=== PATIENT | female | born 1945 | race Caucasian/White ===

== ENCOUNTER 2018-11-01 15:18 | Observation (INO) ==
[2018-11-01 16:22] LABS: BASO# 0.04 X1000 (0.0-0.2); BASO% 0.4 % (0.0-0.8); EOS# 0.05 X1000 (0.0-0.7); EOS% 0.5 % (0.0-10.0); HEMATOCRIT 44.3 % (37.0-47.0); HEMOGLOBIN 13.9 g/dL (12.0-16.0); IMM GRAN# 0.02 X1000 (0.0-0.04); IMM GRAN% 0.2 % (0.0-0.5); LYMPH# 1.12 X1000 (1.2-3.4); LYMPH% 10.4 % (20.5-51.1); MCH 30.1 PG (27-31); MCHC 31.4 g/dL (33-37); MCV 95.9 FL (81-99); MONO# 0.64 X1000 (0.11-0.59); MPV 12.2 FL (7.4-10.4); NEUT# 8.85 X1000 (1.4-6.5); NEUT% 82.5 % (42.2-75.2); PLT 184 X1000 (130-400); RBC 4.62 XMIL (4.2-5.4); WBC 10.72 X1000 (4.8-10.8)
[2018-11-01 16:46] LABS: AGAP 14; ALB/GLOB RATIO 1.8; ALBUMIN 4.1 g/dL (3.5-5.0); ALKALINE PHOSPHATASE 91 U/L (32-104); BUN 16 mg/dL (8-22); CALCIUM 9.7 mg/dL (8.8-10.2); CHLORIDE 102 mmol/L (98-107); COSMO 290; CREATININE 0.6 mg/dL (0.5-0.9); ESTIMATED GFR > 60; GLUCOSE 136 mg/dL (70-104); GOT 23 U/L (10-30); GPT 12 U/L (10-36); POTASSIUM 4.9 mmol/L (3.5-5.1); SODIUM 144 mmol/L (136-145); TCO2 28 mmol/L (25-35); TOTAL BILIRUBIN 0.73 mg/dL (0.20-1.00); TOTAL PROTEIN 6.4 g/dL (6.3-8.3)
[2018-11-01] MEDS ORDERED: SODIUM CHLORIDE 0.9% INJ PRN (18:24)
[2018-11-01] MEDS ORDERED: LOVENOX SUBQ SCH (18:24)
[2018-11-01] MEDS ORDERED: PHENERGAN IV PRN (18:24)
[2018-11-01] MEDS ORDERED: TYLENOL PO PRN (18:24)
--- NOTE | 2018-11-01 19:08 | Diag Imaging Result Doc PS360 ---
EXAM: CT ABDOMEN/PELVIS W/WO CONTRAS INDICATION: ABD PN,N/V TECHNIQUE: This exam was performed using automated exposure control, adjustment of mA or kV according to patient size, and/or use of iterative reconstruction technique. COMPARISON: None. FINDINGS: There has been a prior cholecystectomy. The liver, spleen, pancreas, and adrenal glands are essentially unremarkable. There is bilateral nephrolithiasis and there is an 8.5 mm obstructing stone at the left UPJ with associated moderate left hydronephrosis and a delayed nephrogram. There is a simple appearing right renal cyst. There is no hydronephrosis on the right. The urinary bladder is unremarkable. The pelvis is partially obscured by beam hardening artifact related to right hip arthroplasty. There are surgical changes associated with the stomach. There is no evidence of bowel obstruction or focal bowel wall thickening. The remainder of the GI tract is essentially unremarkable. There has been a prior hysterectomy. There has been multilevel lumbar fusion. There are degenerative changes throughout the spine. IMPRESSION: 1.Bilateral nephrolithiasis with an 8.5 mm obstructing stone at the left UPJ with associated moderate left hydronephrosis. 2.Other incidental/nonacute findings detailed above. Electronically signed by Alfred Lee 11/01/2018 7:06 PM
[2018-11-01] MEDS: DILAUDID IV PRN ×2 (19:11→22:52)
[2018-11-01] MEDS: FLAGYL 500 MG/NS 500 MG/100 ML IVPB IV SCH (19:12)
[2018-11-01] MEDS: NS 1,000 ML IV SCH (19:12)
[2018-11-01 19:33] LABS: BASO% 0.7 % (0.0-0.8); EOS# 0.03 X1000 (0.0-0.7); EOS% 0.2 % (0.0-10.0); HEMATOCRIT 47.7 % (37.0-47.0); HEMOGLOBIN 14.9 g/dL (12.0-16.0); IMM GRAN# 0.03 X1000 (0.0-0.04); IMM GRAN% 0.2 % (0.0-0.5); LYMPH# 1.11 X1000 (1.2-3.4); LYMPH% 8.3 % (20.5-51.1); MCH 30.4 PG (27-31); MCHC 31.2 g/dL (33-37); MCV 97.3 FL (81-99); MONO# 0.76 X1000 (0.11-0.59); MONO% 5.7 % (1.7-9.3); MPV 12.2 FL (7.4-10.4); NEUT# 11.36 X1000 (1.4-6.5); NEUT% 84.9 % (42.2-75.2); PLT 181 X1000 (130-400); RDW 13.3 % (11.5-14.5); WBC 13.39 X1000 (4.8-10.8)
[2018-11-01 20:26] LABS: AGAP 13; BUN 15 mg/dL (8-22); CALCIUM 8.8 mg/dL (8.8-10.2); CHLORIDE 98 mmol/L (98-107); COSMO 284; CREATININE 0.6 mg/dL (0.5-0.9); ESTIMATED GFR > 60; GLUCOSE 196 mg/dL (70-104); POTASSIUM 4.6 mmol/L (3.5-5.1); SODIUM 139 mmol/L (136-145); TCO2 28 mmol/L (25-35)
[2018-11-01] MEDS ORDERED: ZANTAC PO SCH (21:00)
[2018-11-01] MEDS: LYRICA PO SCH (22:41)
[2018-11-01] MEDS: XANAX PO SCH (22:42)
[2018-11-01] MEDS: MIRAPEX PO SCH (22:42)
[2018-11-02] MEDS: SYMBICORT 80/4.5 MICROGM INHALER INH SCH ×2 (00:29→09:30)
[2018-11-02] MEDS: DILAUDID IV PRN ×3 (02:06→10:47)
[2018-11-02] MEDS: FLAGYL 500 MG/NS 500 MG/100 ML IVPB IV SCH (04:20)
[2018-11-02] MEDS ORDERED: SYNTHROID PO SCH (07:00)
[2018-11-02] MEDS ORDERED: DIPRIVAN 1% ONE (07:19)
[2018-11-02] MEDS ORDERED: ZEMURON ONE (07:20)
[2018-11-02] MEDS ORDERED: DECADRON ONE (07:20)
[2018-11-02] MEDS ORDERED: QUELICIN (DOSE) ONE (07:20)
[2018-11-02] MEDS ORDERED: XYLOCAINE-MPF 2% ONE (07:20)
--- NOTE | 2018-11-02 08:55 | PROGRESS NOTE ---
DATE: 11/02/2018 SUBJECTIVE: Ms. Payne rested comfortably throughout the night. A CT scan demonstrated an 8.5 mm stone at the left UPJ junction with moderate hydronephrosis. Pain has been well controlled on IV Dilaudid. She is voiding freely. Dr. Luna saw her in consultation, and will proceed with placement of a JJ stent today with plans to proceed with extracorporeal lithotripsy next week as an outpatient. OBJECTIVE: Vital signs: Temperature 98.3 degrees, pulse 61, respirations 16, blood pressure 108/52. CV: Regular rate and rhythm. Lungs: Clear. Abdomen: Soft, nontender, with active bowel sounds. LABORATORY DATA: A CBC demonstrated a white count of 13.3, hemoglobin 14.9, hematocrit 47.7, platelet count a 181,000. Electrolytes demonstrate the following: Sodium 139, potassium 4.6, chloride 98, BUN 15, creatinine 0.6, and glucose 196. ASSESSMENT AND PLAN: 1. Obstructing distal left ureteral stone with moderate hydronephrosis. We will continue fluid resuscitation, and she will proceed with placement of a J and J stent today with extracorporal lithotripsy as an outpatient next week. I will obtain a urinalysis and a urine culture, and I have switched her to oral Levaquin. I hope to transition her to oral pain medicines today. 2. Blood pressure. Her blood pressure was a little bit low. We we will give her additional fluids, and monitor her blood pressure closely. cc: Josep West MD
[2018-11-02] MEDS ORDERED: KEFZOL 2 GM/D5W 2 GM/50 ML IVPB ONE (08:57)
[2018-11-02] MEDS ORDERED: SINGULAIR PO SCH (09:00)
[2018-11-02] MEDS ORDERED: LEVAQUIN PO SCH (09:00)
[2018-11-02] MEDS ORDERED: NORCO-7.5 PO PRN (10:21)
--- NOTE | 2018-11-02 10:55 | CONSULTATION ---
DATE OF CONSULTATION: 11/02/2018 CONSULTING PHYSICIAN: Josep West MD REASON FOR CONSULTATION: Consultation for left obstructing ureteropelvic junction stone, left flank pain, nausea, hydronephrosis. HISTORY OF PRESENT ILLNESS: A 73-year-old female without previous history of urolithiasis, who developed vague abdominal pain 2 days prior to presentation. One day prior to presentation, her pain had worsened and started radiating to the left flank. The pain was sharp, intermittent. Nothing made it better, nothing made it worse. It radiated toward the upper back. She had associated nausea, but no vomiting. She denied associated gross hematuria, fevers, or chills. She presented to Dr. West' office and was evaluated. CT scan was done, which revealed bilateral renal stones with 9 mm left obstructing ureteropelvic junction stone with hydronephrosis. She was admitted for pain control and nausea. She is requiring IV Dilaudid. PAST MEDICAL HISTORY: GERD, allergic rhinitis, hypothyroidism, anxiety. PAST SURGICAL HISTORY: Bilateral total knee arthroplasty, right hip arthroplasty, bilateral shoulder arthroplasties, back surgery, cholecystectomy, hysterectomy, cochlear implant placement. ALLERGIES: Prednisone. HOME MEDICATIONS: Symbicort, Zantac, Mirapex, Lyrica, Xanax, Synthroid. SOCIAL HISTORY: Denies tobacco, alcohol, and illicit drug use. FAMILY HISTORY: Negative for urolithiasis or malignancies. REVIEW OF SYSTEMS: Reviewed and 12 systems negative except as per HPI. PHYSICAL EXAMINATION: Vital Signs: T 98, P 62, BP 99/45. General: No acute distress. Pleasant female. HEENT: Normocephalic, atraumatic. Cardiovascular: Regular rate and rhythm. Pulmonary: Bilateral breath sounds. Abdomen: Protuberant. Nontender to palpation. Back: Mild left CVA tenderness. Genitourinary: Bladder is nontender to palpation. Dermatologic: No obvious skin rashes. Neurologic: Neurologic alert and oriented x3. Lymphatic: No groin lymphadenopathy. Psychiatric: Appropriate mood and affect. PERTINENT LABORATORY DATA: White cell count 13,000, hematocrit 48, platelet count 181,000. Creatinine is 0.6. PERTINENT IMAGES: CT abdomen and pelvis per HPI. By my review, she has an 8 mm left renal stone as well as a 5 mm left renal stone, and aforementioned 9 mm left ureteropelvic junction stone. She has a 6 to 7 mm right renal stone. ASSESSMENT AND PLAN: A 73-year-old female with left obstructing ureteropelvic junction stone, hydronephrosis, flank pain and nausea, as well as bilateral urolithiasis. We discussed that her treatment options were cystoscopy with left ureteral stent placement followed by left extracorporeal shockwave lithotripsy and stent removal versus left ureteroscopy with laser lithotripsy versus left percutaneous nephrolithotomy. Pros and cons of each were discussed. She wants to proceed with a staged approach. We discussed the risks of cystoscopy and stent placement that include, but not limited to, bleeding, infection, injury to the bladder, injury to adjacent structures, inability to place a stent, and need for additional interventions. She was understanding and wants to proceed. PLAN: 1. NPO now. 2. Ancef 2 g production repairer to the operating room. 3. To the operating room for cystoscopy with left ureteral stent placement. cc: MD Josep Carrero MD
--- NOTE | 2018-11-02 10:57 | OPERATIVE NOTE ---
PROCEDURE DATE: 11/02/2018 SURGEON: Dr. Jimmy Luna. PREOPERATIVE DIAGNOSIS: Left ureteropelvic junction stone with obstruction, hydronephrosis, flank pain, and nausea. PROCEDURE: Cystoscopy with placement of 6-Moroccan, 24 cm left ureteral stent. INDICATIONS: A 73-year-old female who presented with left flank pain and nausea. She underwent imaging revealing obstructing left ureteropelvic junction stone. She presents for cystoscopy stent placement with a plan for left extracorporeal shockwave lithotripsy and stent removal next week. FINDINGS: Successful stent placement. PROCEDURE IN DETAIL: After obtaining informed consent, the patient was brought to the operating room. Perioperative antibiotics and laryngeal mask anesthesia were administered. She was placed in lithotomy position, prepped and draped in sterile fashion. A 21-Moroccan rigid cystoscope was used to gain access to the bladder, which was then examined in systematic fashion. She had no evidence of mucosal lesions, excessive trabeculations, or diverticula noted. We turned our attention to the left ureteral orifice, which was cannulated with a PTFE wire. It was advanced to the level of the ureteropelvic junction and then the left renal pelvis. The stone was easily seen. The wire bypass the stone without difficulties. We then advanced a 6-Moroccan, 24 cm stent over the wire via the cystoscope with the proximal coil position confirmed fluoroscopically and distal coil directly visualized. The string was detached from the stent. The bladder was emptied and the cystoscope was removed. She was extubated and taken to PACU for further recovery. COMPLICATIONS: None. ESTIMATED BLOOD LOSS: 0 mL. DISPOSITION: To PACU and eventually discharge per Dr. West' discretion. We will plan for the patient to undergo left extracorporeal shockwave lithotripsy with cystoscopy and stent removal next , 11/08/2018. cc: MD Josep Carrero MD
--- NOTE | 2018-11-02 11:45 | Diag Imaging Result Doc PS360 ---
EXAM: FLUOROSCOPY CYSTO INDICATION: LT. STENT PLACEMENT TECHNIQUE: COMPARISON: None. FINDINGS: Six spot fluoroscopic images were provided, which were performed during left ureteral stent placement by Dr. Luna. On the final image, the newly placed left ureteral stent is identified in the expected position. IMPRESSION: As above. Please correlate with live fluoroscopic imaging. Electronically signed by Alfred Lee 11/02/2018 11:43 AM
[2018-11-02] MEDS ORDERED: DITROPAN XL PO ONE (12:18)
[2018-11-02 12:19] VITALS: BP 119/54
[2018-11-02] MEDS: NS 1,000 ML IV SCH (12:32)
[2018-11-02] MEDS: LYRICA PO SCH (12:38)
[2018-11-02] MEDS: MIRAPEX PO SCH (12:38)
[2018-11-02] MEDS: XANAX PO SCH (12:38)
[2018-11-02] MEDS ORDERED: FLOMAX PO ONE (12:52)
[2018-11-02] MEDS ORDERED: DITROPAN PO PRN (12:52)
== END 2018-11-02 14:48 | disposition home or self-care (01) ==
LOC: DIRADM → 3N 17:00
PROVIDERS: ADMIT Internal Medicine; ATTEND Internal Medicine
CPT/HCPCS: 36415; 74178; 76000; 80048; 80053; 85025; 87040; 94640; A9270; J0330; J0690; J1100; J1170; J7030; Q9967; S0030